=== PATIENT | female | born 1950 | race Caucasian/White ===

== ENCOUNTER 2019-12-13 11:05 | Observation (INO) ==
[2019-12-13] MEDS ORDERED: Acetaminophen 325 MG TABLET PO PRN (15:35)
[2019-12-13] MEDS ORDERED: Mag Hydrox/Al Hydrox/Simeth 30 ML UDC PO PRN (15:35)
[2019-12-13] MEDS ORDERED: Ondansetron 4 MG/2 ML VIAL IVP PRN (15:35)
[2019-12-13] MEDS ORDERED: Naloxone 0.4 MG/ML INJ IVP PRN (15:35)
[2019-12-13] MEDS ORDERED: *HR* Promethazine 25 MG/ML VIAL IVP PRN (15:35)
[2019-12-13] MEDS ORDERED: *HR* HYDROcodone/Acet 5/325 mg TABLET PO PRN (15:35)
[2019-12-13] MEDS ORDERED: MOM Conc 10 ML UD.LIQ PO PRN (15:35)
[2019-12-13] MEDS: *HR* Heparin 5,000 UNIT/ML VIAL SQ SCH (18:04)
[2019-12-14] MEDS ORDERED: Benzonatate 100 MG CAPSULE PO PRN (03:07)
[2019-12-14] MEDS: *HR* Heparin 5,000 UNIT/ML VIAL SQ SCH ×2 (05:34→17:57)
[2019-12-14 06:02] LABS: Basophils # 0.1 K/mcL (0.0-0.2); Basophils % 1.4 %; Eosinophils # 0.3 K/mcL (0.0-0.6); Eosinophils % 5.9 %; Hematocrit 33.5 % (35.3-44.9); Hemoglobin 10.4 g/dL (11.5-15.4); Immature Granulocytes % 0.2 % (0-4); Lymphocytes # 1.3 K/mcL (0.6-4.6); Lymphocytes % 25.6 %; Mean Corpuscular Hemoglobin 26.7 pg (28.0-33.3); Mean Corpuscular Volume 85.9 fL (83.0-100.0); Monocytes # 0.6 K/mcL (0.0-1.3); Monocytes % 11.2 %; Neutrophils # 2.9 K/mcL (1.6-8.9); Platelet Count 282 K/mcL (140-400); Red Cell Distribution Width 16.3 % (11.5-14.5); Segmented Neutrophils % 55.7 %; White Blood Count 5.1 K/mcL (4.3-11.1)
[2019-12-14 06:22] LABS: BUN/Creatinine Ratio 34 (6-26); Blood Urea Nitrogen 15 mg/dL (8-23); Calcium 8.6 mg/dL (8.6-10.3); Carbon Dioxide 26 mEq/L (23-29); Chloride 108 mEq/L (98-107); Chol/HDL Ratio 3.4 (0-4.9); Cholesterol 193 mg/dL (< 200); Glucose 95 mg/dL (70-105); HDL Cholesterol 57 mg/dL (40-59); LDL Cholesterol,Calculated 122 mg/dL (0-99); Osmolality,Calculated 289 (280-300); Potassium 3.7 mEq/L (3.5-5.1); Sodium 139 mEq/L (136-145); Triglycerides 71 mg/dL (< 150); eGFR For African Americans > 60 (> 60); eGFR For Non-African Americans > 60 (> 60)
[2019-12-14 06:39] LABS: Vitamin B12 243 pg/mL (250-1100)
[2019-12-14 09:08] LABS: Vitamin D 25 Hydroxy 20 ng/mL (30-80)
[2019-12-14] MEDS: Vitamin B Complex/Vit C/Vit E 1 EACH TABLET PO SCH (09:39)
[2019-12-14] MEDS: Aspirin Enteric Coated 81 MG Tablet PO SCH (09:39)
[2019-12-15] MEDS: *HR* Heparin 5,000 UNIT/ML VIAL SQ SCH (05:57)
[2019-12-15 08:09] VITALS: BP 124/71
[2019-12-15] MEDS: Aspirin Enteric Coated 81 MG Tablet PO SCH (08:38)
[2019-12-15] MEDS: Vitamin B Complex/Vit C/Vit E 1 EACH TABLET PO SCH (08:38)
[2019-12-15] MEDS ORDERED: Cholecalciferol (D-3) 1,000 UNIT (25MCG) TABLET PO SCH (09:00)
[2019-12-15] MEDS ORDERED: Cyanocobalamin (B-12) 1,000 MCG TABLET PO SCH (09:00)
[2019-12-15] MEDS ORDERED: levETIRAcetam 250 MG TABLET PO SCH (18:00)
== END 2019-12-15 11:20 | disposition home or self-care (01) ==
LOC: 3BNU
PROVIDERS: ADMIT Internal Medicine; ATTEND Internal Medicine

== ENCOUNTER 2020-07-26 11:40 | Observation (INO) ==
[2020-07-26] MEDS ORDERED: Isovue-370 500 ML BOTTLE IVP ONE (12:04)
[2020-07-26 12:25] LABS: Basophils # 0.1 K/mcL (0.0-0.2); Basophils % 0.8 %; Eosinophils # 0.2 K/mcL (0.0-0.6); Hemoglobin 8.2 g/dL (11.5-15.4); Immature Granulocytes % 0.3 % (0-4); Lymphocytes # 0.8 K/mcL (0.6-4.6); Lymphocytes % 10.8 %; Mean Corpuscular HGB Conc 26.5 g/dL (31.6-35.5); Mean Corpuscular Hemoglobin 19.3 pg (28.0-33.3); Mean Corpuscular Volume 73.1 fL (83.0-100.0); Mean Platelet Volume 10.1 fL (9.4-12.4); Monocytes # 0.6 K/mcL (0.0-1.3); Monocytes % 8.1 %; Neutrophils # 5.8 K/mcL (1.6-8.9); Platelet Count 363 K/mcL (140-400); Red Blood Count 4.24 M/mcL (3.82-4.97); Red Cell Distribution Width 18.9 % (11.5-14.5); White Blood Count 7.4 K/mcL (4.3-11.1)
[2020-07-26 12:50] LABS: Alanine Aminotransferase 11 Units/L (7-52); Albumin 3.9 g/dL (3.5-5.7); Albumin/Globulin Ratio 1.4 (1.1-2.2); Alkaline Phosphatase 61 Units/L (34-104); Aspartate Amino Transferase 17 Units/L (13-39); BUN/Creatinine Ratio 27 (6-26); Bilirubin,Total 0.6 mg/dL (0.3-1.0); Blood Urea Nitrogen 12 mg/dL (8-23); Carbon Dioxide 24 mEq/L (23-29); Chloride 108 mEq/L (98-107); Globulin 2.8 g/dL (2.4-3.5); Glucose 97 mg/dL (70-105); Osmolality,Calculated 290 (280-300); Potassium 4.1 mEq/L (3.5-5.1); Sodium 140 mEq/L (136-145); Total Protein 6.7 g/dL (6.4-8.9); eGFR For African Americans > 60 (> 60); eGFR For Non-African Americans > 60 (> 60)
[2020-07-26 12:51] LABS: Troponin I < 0.03 ng/mL (< 0.04)
[2020-07-26 13:36] LABS: Microcytosis Present (Not Present); Platelet Estimate Normal (Normal)
[2020-07-26] MEDS ORDERED: Pantoprazole 40 MG VIAL IVP ONE (13:46)
[2020-07-26] MEDS ORDERED: Naloxone 0.4 MG/ML INJ IVP PRN (15:08)
[2020-07-26] MEDS ORDERED: Ondansetron 4 MG/2 ML VIAL IVP PRN (15:08)
[2020-07-26 15:29] LABS: % Iron Saturation 65 % (15-50); Iron 319 mcg/dL (50-170); Transferrin 353 mg/dL (203-362)
[2020-07-26 15:53] LABS: Ferritin < 8 ng/mL (10-120)
[2020-07-26 16:50] LABS: Hematocrit 30.4 % (35.3-44.9); Hemoglobin 8.1 g/dL (11.5-15.4)
[2020-07-26] MEDS: Pantoprazole 40 MG in 0.9 % Sodium Chloride Mini Bag 100 ML IVC SCH ×2 (17:01→19:44)
[2020-07-26 20:19] LABS: Hematocrit 26.9 % (35.3-44.9); Hemoglobin 7.3 g/dL (11.5-15.4)
[2020-07-27] MEDS ORDERED: 0.9 % Sodium Chloride 250 ML IVC SCH (00:30)
[2020-07-27 00:32] LABS: Hematocrit 25.7 % (35.3-44.9); Hemoglobin 7.1 g/dL (11.5-15.4)
[2020-07-27] MEDS: Pantoprazole 40 MG in 0.9 % Sodium Chloride Mini Bag 100 ML IVC SCH ×5 (05:06→20:54)
[2020-07-27 06:22] LABS: Hematocrit 29.1 % (35.3-44.9); Hemoglobin 8.3 g/dL (11.5-15.4); Mean Corpuscular HGB Conc 28.5 g/dL (31.6-35.5); Mean Corpuscular Hemoglobin 21.1 pg (28.0-33.3); Mean Platelet Volume 10.3 fL (9.4-12.4); Platelet Count 330 K/mcL (140-400); Red Blood Count 3.93 M/mcL (3.82-4.97); Red Cell Distribution Width 19.8 % (11.5-14.5); White Blood Count 4.9 K/mcL (4.3-11.1)
[2020-07-27 06:28] LABS: Prothrombin Time 11.8 Seconds (9.4-12.1)
[2020-07-27 06:31] LABS: Activated Partial Thrombo Time 30.8 Seconds (26.0-36.0)
[2020-07-27 06:47] LABS: BUN/Creatinine Ratio 19 (6-26); Blood Urea Nitrogen 7 mg/dL (8-23); Calcium 8.8 mg/dL (8.6-10.3); Carbon Dioxide 24 mEq/L (23-29); Chloride 108 mEq/L (98-107); Chol/HDL Ratio 2.9 (0-4.9); Cholesterol 169 mg/dL (< 200); Glucose 97 mg/dL (70-105); HDL Cholesterol 58 mg/dL (40-59); LDL Cholesterol,Calculated 97 mg/dL (< 100); Magnesium 1.9 mg/dL (1.6-2.6); Osmolality,Calculated 288 (280-300); Potassium 3.5 mEq/L (3.5-5.1); Sodium 140 mEq/L (136-145); Triglycerides 71 mg/dL (< 150); eGFR For African Americans > 60 (> 60); eGFR For Non-African Americans > 60 (> 60)
[2020-07-27 07:07] LABS: Folate > 22.3 ng/mL (3.0-16.0); Vitamin B12 515 pg/mL (250-1100)
[2020-07-27 09:24] LABS: Influenza A PCR Negative (Negative); Influenza B PCR Negative (Negative); Resp. Syncytial Virus PCR Negative (Negative)
[2020-07-27] MEDS: Iron Sucrose Complex 400 MG in 0.9 % Sodium Chloride 250 ML IVPB SCH (10:17)
[2020-07-27 10:23] LABS: SARS-CoV-2 by PCR (In House) Negative (Negative)
[2020-07-27] MEDS ORDERED: Ringers Solution, Lactated 1,000 ML IVC ONE (11:52)
[2020-07-27] MEDS ORDERED: Lidocaine -MPF 2% 2 ML VIAL ONE (13:01)
[2020-07-27] MEDS ORDERED: *HR* Propofol 200 MG/20 ML VIAL IVP ONE (13:22)
[2020-07-28] MEDS: Pantoprazole 40 MG in 0.9 % Sodium Chloride Mini Bag 100 ML IVC SCH ×2 (02:04→06:31)
[2020-07-28 04:00] LABS: Hemoglobin 7.9 g/dL (11.5-15.4); Platelet Count 315 K/mcL (140-400)
[2020-07-28 04:01] LABS: Hematocrit 28.5 % (35.3-44.9); Mean Corpuscular HGB Conc 27.7 g/dL (31.6-35.5); Mean Corpuscular Hemoglobin 20.8 pg (28.0-33.3); Mean Platelet Volume 10.1 fL (9.4-12.4); Red Cell Distribution Width 19.7 % (11.5-14.5); White Blood Count 8.9 K/mcL (4.3-11.1)
[2020-07-28 04:13] LABS: BUN/Creatinine Ratio 16 (6-26); Blood Urea Nitrogen 7 mg/dL (8-23); Calcium 8.3 mg/dL (8.6-10.3); Carbon Dioxide 27 mEq/L (23-29); Chloride 109 mEq/L (98-107); Glucose 95 mg/dL (70-105); Osmolality,Calculated 290 (280-300); Potassium 3.1 mEq/L (3.5-5.1); Sodium 141 mEq/L (136-145); eGFR For African Americans > 60 (> 60); eGFR For Non-African Americans > 60 (> 60)
[2020-07-28] MEDS ORDERED: Sucralfate 1 GM TABLET PO SCH (07:39)
[2020-07-28 08:31] VITALS: BP 115/56
[2020-07-28] MEDS: Iron Sucrose Complex 400 MG in 0.9 % Sodium Chloride 250 ML IVPB SCH (08:44)
[2020-07-28] MEDS ORDERED: Isovue-370 500 ML BOTTLE IVP ONE (09:00)
[2020-07-28 10:21] LABS: C-Reactive Protein < 5 mg/L (Less than 10)
[2020-07-28] MEDS ORDERED: levETIRAcetam 250 MG TABLET PO SCH (18:00)
== END 2020-07-28 12:45 | disposition home or self-care (01) ==
LOC: EMEROOARM 11:40 → 3ANU 11:40
PROVIDERS: ADMIT Internal Medicine; ATTEND Internal Medicine
PROC: ENDOEBX (2020-07-27 14:30)